=== PATIENT | female | born 2000 | race African-American/Black ===

== ENCOUNTER 2022-06-29 18:24 | Emergency (ER) | payer MEDICAID ==
[~2022-06-29] VITALS: Ht 162.6 cm; Wt 57.0 kg
[2022-06-29 18:59] VITALS: BP 137/91
[2022-06-29] MEDS ORDERED: METOCLOPRAMIDE HCL 10MG TABLET PO ONE (21:15)
[2022-06-29] MEDS ORDERED: ACETAMINOPHEN 325MG TABLET PO ONE (21:15)
[2022-06-29 21:39] LABS: BASOPHILS % 0.5 % (0.0-2.0); EOSINOPHILS % 1.2 % (0.0-5.0); HEMATOCRIT. 41.6 % (36.0-48.0); HEMOGLOBIN. 14.1 g/dL (12.0-16.0); LYMPHOCYTES % 23.8 % (20.0-50.0); MEAN CORPUSCULAR HEMOGLOBIN 29.3 pg (28.0-32.0); MEAN CORPUSCULAR VOLUME 86.6 fL (81.0-99.0); MEAN PLATELET VOLUME 7.9 fl (7.4-10.4); MONOCYTES % 7.3 % (2.0-8.0); NEUTROPHILS % 67.2 % (40.0-76.0); PLATELET 486 x1000/uL (130-400); RED BLOOD CELL COUNT 4.81 mill/uL (4.2-5.4)
[2022-06-29 21:49] LABS: CHLORIDE 105 mEq/L (98-107)
[2022-06-29 21:52] LABS: HCG SCREEN NEGATIVE
[2022-06-29 22:00] LABS: D-DIMER 0.26 mg/L FEU (<0.50); INR 1.2; PROTHROMBIN TIME 12.4 sec (9.6-11.0)
== END 2022-06-29 22:25 | disposition home or self-care (01) ==
LOC: ER 18:56
DX: R55 Syncope and collapse (principal); J45.909 Unspecified asthma, uncomplicated
CPT/HCPCS: 36415; 80053; 84484; 84703; 85025; 85379; 85610; 99283; J8597

== ENCOUNTER 2022-10-09 12:13 | Emergency (ER) | payer MEDICAID ==
[~2022-10-09] VITALS: Ht 162.6 cm; Wt 54.0 kg
[2022-10-09 12:47] VITALS: BP 143/95
[2022-10-09] MEDS ORDERED: DEXAMETHASONE 4MG TABLET PO ONE (19:45)
[2022-10-09] MEDS ORDERED: IPRATROPIUM/ALBUTEROL 0.5-3(2.5)MG/3ML NEB HHN ONE (19:45)
[2022-10-09] MEDS ORDERED: ALBU6.7H3 INH (20:44)
== END 2022-10-09 20:50 | disposition home or self-care (01) ==
LOC: ER 12:13
DX: J45.901 Unspecified asthma with (acute) exacerbation (principal)
CPT/HCPCS: 81025; 94640; 99283; J8540; Z7610